=== PATIENT | female | born 1945 | race Caucasian/White ===

== ENCOUNTER → 2018-01-10 | Outpatient (CLI) | payer MEDICARE, OTHER ==
[~2018-01-10] MED LIST: ASPI1TAB69 PO; CILO50TA PO; FENO50TA PO; GLIP10TA6 PO; METO50TA PO; PLAV75TA29 PO; PROT40TA PO; ROSU10 PO; ZOLO100T PO
--- NOTE | 2018-01-11 22:09 | EKG ---
Date Performed: 01/10/2018 Time Performed: 13:46:00 PTAGE: 72 years EKG: Sinus rhythm . Normal ECG PREVIOUS TRACING : 10/12/2016 11.45 Since the prior tracing, there has been no significant taylor DOCTOR: Chidi Martin Interpretating Date/Time 01/11/2018 22:08:48
== END ==
LOC: HCAV 13:38
PROVIDERS: ATTEND Orthopaedic Surgery Orthopaedic Surgery of the Spine
DX: Z01.810 Encounter for preprocedural cardiovascular examination (principal)
CPT/HCPCS: 93005